=== PATIENT | female | born 1955 | race Caucasian/White ===

== ENCOUNTER → 2016-08-18 | Outpatient (CLI) | payer OTHER ==
--- NOTE | 2016-08-18 09:57 | REPMRS ---
Patient History The patient states she had a clinical breast exam in 08/2016. Patient is postmenopausal and is nulliparous. Family history of ovarian cancer in mother at age 72. Taking unspecified hormones for 4 years 1 month. Digital Woman Screen Mammo: August 18, 2016 - Exam #: [id number] Bilateral CC and MLO view(s) were taken. Technologist: Kalie Holguin, Technologist Prior study comparison: August 18, 2015, digital woman screen mammo performed at [facility] to [facility]. August 04, 2014, digital woman screen mammo performed at [facility] to [facility]. FINDINGS: There are scattered fibroglandular densities. There has been no change in the appearance of the mammogram from the prior studies. There is a mild amount of residual fibroglandular tissue which is fairly symmetric. There is no interval development of dominant mass, architectural distortion, or clustered microcalcification suggestive of malignancy. ASSESSMENT: BI-RADS/ACR category 1 mammogram. Negative. Recommendation Routine screening mammogram in 1 year (for women over age 40). This mammogram was interpreted with the aid of an FDA-approved computer-aided dectection system. Electronically Signed By: Jose Lin MD 08/18/16 0957
--- NOTE | 2016-08-18 13:07 | REP ---
PELVIC ULTRASOUND: Real-time sonographic of the pelvis performed utilizing transabdominal and endovaginal technique. Bladder measures 9.3 x 5.9 x 9.8 cm. Uterus measures 6.3 x 2.5 x 3.8 cm. Endometrial thickness is 3 mm. There is a tiny amount of fluid in the endometrial canal. Ovaries could not be visualized. I see no evidence of mass or free fluid in the pelvis. IMPRESSION: Tiny amount of endometrial fluid. Endometrium does not appear to be significantly thickened at 3 mm in thickness. No definite mass or free fluid. Ovaries could not be visualized.
--- NOTE | 2016-08-21 09:35 | DEXA ---
AP SPINE L1 - L4 1.079 -0.9 0.3 LT FEMUR TOTAL 0.901 -0.8 0.1 RT FEMUR TOTAL 0.949 -0.5 0.5 TOTAL BODY TOTAL OTHER DUAL FEMUR FRAX* ASSESSMENT Risk factors: Mother hip fracture. 10 year probability of fracture Major osteoporotic fracture 15.8 % Hip fracture 0.7 % COMMENTS: Normal bone densitometry of the spine. There is low bone density of the hips. The decreased density of the spine does represent a significant change. The decreased density of the left hip does represent a significant change. The decreased density of the right hip does not represent a significant change. The density of the spine has decreased 12.6% since the initial exam on 2006. The spine density has decreased 4.4% since the most recent exam on 08/04/2014. The density of the left hip has decreased 10.1% since the initial exam on 2006. The density of the left hip has decreased 3.8% since the most recent exam on . The density of the right hip has decreased 8.5% since the initial exam on 2006. The density of the right hip has decreased 1.4% since the most recent exam on . FOLLOW-UP: Recommendation for the next bone density exam: 2 years. AMANDEEP
== END ==
LOC: M WHC 07:58
PROVIDERS: ATTEND Nurse Practitioner Women's Health
DX: Z12.39 Encounter for other screening for malignant neoplasm of breast (principal); N95.1 Menopausal and female climacteric states

== ENCOUNTER → 2016-08-18 | Outpatient (REF) | payer OTHER | LOC: M SFHCWAGY 09:08 | PROVIDERS: ATTEND Nurse Practitioner Women's Health | DX: Z12.4 Encounter for screening for malignant neoplasm of cervix (principal); Z12.39 Encounter for other screening for malignant neoplasm of breast ==

== ENCOUNTER → 2017-01-12 | Outpatient (REF) | payer OTHER ==
[~2017-01-12] MED LIST: AMLO2.5T PO; IMIT50TA PO; LEVOTAB10 PO; MONT10TA2 PO; PRIL20CA9 PO; QNAS80AE; [UNRECOGNIZED DRUG - OTHER] PO; femhrt PO
[2017-01-15 13:41] LABS: PERCENT SATURATION 6.8 % (13.2-45.0)
== END ==
LOC: M LAB REF 13:10
PROVIDERS: ATTEND Internal Medicine
DX: D64.9 Anemia, unspecified (principal)

== ENCOUNTER 2017-03-01 10:29 | Day surgery (SDC) | payer OTHER ==
[~2017-03-01] VITALS: Ht 157.5 cm; Wt 68.5 kg
[2017-03-01] MEDS ORDERED: LR 1,000 ML IV ONE (11:00)
[2017-03-01] MEDS ORDERED: LIDOCAINE 2% MDV 20 ML VIAL As Ordered ONE (11:18)
[2017-03-01] MEDS ORDERED: BUPIVACAINE HCL 0.5% 30 ML VIAL As Ordered ONE (11:18)
[2017-03-01] MEDS ORDERED: dexameTHASONE 4 MG/ML 1ML VIAL (J1100) As Ordered ONE (11:18)
[2017-03-01] MEDS ORDERED: NEOSPORIN GU IRRIG 20 ML VIAL As Ordered ONE (11:19)
[2017-03-01] MEDS ORDERED: BACITRACIN PWD 50,000 UNITS VIAL As Ordered ONE (11:19)
[2017-03-01] MEDS ORDERED: BUPIVACAINE HCL 0.25% 10 ML VIAL As Ordered ONE (12:24)
[2017-03-01] MEDS ORDERED: PROPOFOL 200 MG/20 ML VIAL As Ordered ONE (12:49)
[2017-03-01] MEDS ORDERED: LIDOCAINE 2% INJ 100 MG/5 ML SDV (FOR ANES.) As Ordered ONE (12:49)
[2017-03-01] MEDS ORDERED: MIDAZOLAM INJ 2 MG/2 ML VIAL (J2250) As Ordered ONE (12:49)
[2017-03-01] MEDS ORDERED: fentaNYL 100 MCG/2 ML INJECTION (J3010) As Ordered ONE (12:49)
[2017-03-01] MEDS ORDERED: ONDANSETRON 4MG/2ML VIAL (J2405) IV PRN (14:00)
[2017-03-01] MEDS ORDERED: fentaNYL 100 MCG/2 ML INJECTION (J3010) IV PRN (14:00)
[2017-03-01] MEDS ORDERED: LR 1,000 ML IV SCH (14:00)
[2017-03-01 14:20] VITALS: BP 151/70
--- NOTE | 2017-03-01 15:23 | REP ---
Clinical: Postoperative baseline evaluation. Technique: Portable AP, lateral, oblique views. Findings: The patient is status post cheilectomy. Swelling and small amounts of subcutaneous emphysema are appreciated. Degenerative changes at the first metatarsophalangeal and interphalangeal joint noted. Satisfactory alignment maintained. Impression: Postoperative changes. Satisfactory alignment. Signed by Tan Ceballos MD 03/01/2017 03:15 P
--- NOTE | 2017-03-01 19:47 | RO ---
DATE OF PROCEDURE: 03/01/2017 PREOPERATIVE DIAGNOSIS: Hallux limitus deformity right foot. POSTOPERATIVE DIAGNOSIS: Hallux limitus deformity right foot. SURGEON: Dr. Jonny Marx DPM CEMENT TRUCK DRIVER: None. PROCEDURE PERFORMED: Cheilectomy first metatarsophalangeal joint right foot. HEMOSTASIS: Ankle pneumatic tourniquet at 200 mmHg for 32 minutes. HARDWARE UTILIZED: None. IRRIGATION: Dilute bacitracin, neomycin, polymyxin B solution. DESCRIPTION OF OPERATION: On 03/01/2017, this 61-year-old white female was taken from her hospital room to the operating room and placed on the operating table in supine position. Following the induction of IV sedation, local and regional anesthesia, the right lower extremity was prepped and draped in the usual aseptic manner. Attention was directed to the patients right foot and the following procedure was performed: CHEILECTOMY FIRST METATARSOPHALANGEAL JOINT RIGHT FOOT: Attention was directed to the patients first metatarsophalangeal joint where a linear incision was placed measuring approximately 5 cm over the first metatarsophalangeal joint. The incision was deepened in the subcutaneous tissues and all coursing venous tributaries were identified, underscored, clamped, cut, ligated and electrocoagulated as necessary. A linear capsulotomy was then performed in the same plane as the original skin incision. The capsular and periosteal structures were then dissected free in one continuous layer dorsally, medially and laterally, thus created a capsular periosteal type envelope. This delivered into view the hypertrophied medial eminence of the first metatarsal, which was osteotomized from distal to proximal through and through. The articular cartilage was then inspected on the first metatarsal. This large dorsal spur and approximately 40% of the articular cartilage was missing from the first metatarsal. Only 10% was missing from the proximal phalanx allowing us a salvage consisting of a cheilectomy to be performed. The dorsal spur was then osteotomized from distal to proximal through the first metatarsal, encompassing approximately 30-35 percent of the articular cartilage of the first metatarsal. This left a rim of denuded bone measuring approximately 3-4 mm measuring the entire length of the first metatarsal. This was microfractured with a 0.045 K-wire to promote fibrocartilaginous end growth. The dorsal 20% of the proximal phalanx was similarly osteotomized from distal to proximal through and through. However the cartilage remaining on this was completely viable along the lateral margin with the medial margin only missing approximately 10% of the cartilage or 2-3 mm. This was similarly drilled to promote fibrocartilaginous ingrowth with a 0.045 K-wire. The wound was flushed with copious amounts of dilute bacitracin, neomycin, and polymyxin B solution. Attention was directed towards closure where the capsular structures were coapted and maintained using #2-0 Monocryl in a simple interrupted type fashion. The subcutaneous tissues were coapted and maintained using #4-0 Monocryl in a simple interrupted type fashion. The skin incision was coapted and maintained utilizing #5-0 Monocryl in a continuous subcuticular type fashion. This was additionally reinforced with Steri-Strips. Following the surgical procedure, approximately 4 mg of dexamethasone sodium phosphate was instilled proximal to surgical site. Attention was directed towards bandaging where a sterile compressive bandage was applied consisting of Adaptic, 4 x 4's, 4 x 4 splints, Mert, Kerlix and Coban. The ankle pneumatic tourniquet was rapidly deflated and instantaneous capillary refilling time was noted to digits 1 through 5 of the patient's right foot. The patient having apparently tolerated the procedure well, was taken from the operating room to the recovery room, vital signs stable, patient afebrile, for further monitoring by the anesthesia department. All surgical specimens removed during the operative procedure were sent to pathology for gross and microscopic examination. Postoperative instructions will be given upon discharge.
== END 2017-03-01 15:00 | disposition home or self-care (01) ==
LOC: M SDC 10:29
PROVIDERS: ATTEND Podiatrist
DX: M20.21 Hallux rigidus, right foot (principal); I10 Essential (primary) hypertension; K21.9 Gastro-esophageal reflux disease without esophagitis; G43.909 Migraine, unspecified, not intractable, without status migrainosus; Z88.2 Allergy status to sulfonamides; Z79.899 Other long term (current) drug therapy; Z86.69 Personal history of other diseases of the nervous system and sense organs; Z78.0 Asymptomatic menopausal state
CPT/HCPCS: 28289; 73630; 88300; 97116; J0690; J1100; J2250; J3010

== ENCOUNTER 2017-04-30 07:19 | Day surgery (SDC) | payer OTHER ==
[2017-04-30] MEDS ORDERED: NS 1,000 ML IV (07:30)
[2017-04-30] MEDS ORDERED: LIDOCAINE 2% INJ 100 MG/5 ML SDV (FOR ANES.) As Ordered (08:23)
[2017-04-30] MEDS ORDERED: PROPOFOL 200 MG/20 ML VIAL As Ordered ×3 (08:23→08:49)
== END 2017-04-30 09:35 | disposition home or self-care (01) ==
LOC: M OPP 07:19
DX: D50.9 Iron deficiency anemia, unspecified (principal); K64.0 First degree hemorrhoids; K44.9 Diaphragmatic hernia without obstruction or gangrene; K31.7 Polyp of stomach and duodenum; I10 Essential (primary) hypertension; K21.9 Gastro-esophageal reflux disease without esophagitis; G43.909 Migraine, unspecified, not intractable, without status migrainosus; Z79.82 Long term (current) use of aspirin; Z79.899 Other long term (current) drug therapy; Z88.2 Allergy status to sulfonamides; Z78.0 Asymptomatic menopausal state; Z86.69 Personal history of other diseases of the nervous system and sense organs
CPT/HCPCS: 45378

== ENCOUNTER → 2017-06-20 | Outpatient (REF) | payer OTHER ==
[2017-06-20 14:57] LABS: IRON (FE) 80 UG/DL (50-170); PERCENT SATURATION 18.3 % (13.2-45.0); TOTAL IRON BINDING CAPACITY 437 UG/DL (250-450)
== END ==
LOC: M LAB REF 13:26
DX: D50.9 Iron deficiency anemia, unspecified (principal)
CPT/HCPCS: 83550

== ENCOUNTER → 2017-10-02 | Outpatient (CLI) | payer OTHER | LOC: M WHC 08:57 | DX: Z12.31 Encounter for screening mammogram for malignant neoplasm of breast (principal); Z78.0 Asymptomatic menopausal state | CPT/HCPCS: 77067 ==

== ENCOUNTER → 2017-10-02 | Outpatient (REF) | payer OTHER | LOC: M SFHCWAGY 09:38 | DX: Z12.4 Encounter for screening for malignant neoplasm of cervix (principal) ==

== ENCOUNTER → 2018-04-03 | Outpatient (CLI) | payer OTHER ==
[~2018-04-03] MED LIST changes: -AMLO2.5T PO; +AMLO2.5T2 PO; +ASPI1TAB PO; +CITRTAB15 PO; +MULT1TAB10 PO; +PROHANCE 279.3MG/ML 15ML VIAL (A9576) As Ordered ONE
--- NOTE | 2018-04-03 15:57 | REP ---
Bilateral breast MRI study without and with IV gadolinium: History: Genetic susceptibility to malignant neoplasm of the breast. High risk screening. Comparison mammography October 02, 2017. Technique: 3 Shalini MRI imaging was performed with a dedicated breast coil. Axial, coronal, and sagittal T1 and T2-weighted scans were obtained with and without fat saturation in the usual fashion. The study includes dynamically acquired post gadolinium enhanced imaging subtraction imaging. Maximal intensity projection and multiplanar re-formation imaging is included as well. The study was interpreted with the aid of ImmediatelyD, an FDA approved computer-aided detection (CAD) software program, on a dedicated breast MRI work station. The gadolinium enhancement dose is 14 ml of intravenous ProHance. Findings: T2-weighted inversion recovery, axial and coronal images show no evidence of axillary lymphadenopathy on either side. There is no evidence of significant breast cystic change. Scattered fibroglandular elements are seen bilaterally in a pattern which is symmetric. High-resolution pre- and postcontrast T1 and T2-weighted images show no suspicious morphologic abnormality in either breast. Dynamically acquired sequential post gadolinium enhanced images show no suspicious area of enhancement and washout in either breast to suggest malignancy. Subtraction images are unremarkable. Impression: BIRADS category 1 negative bilateral breast MRI scanning. Patient's whose lifetime breast cancer risk assessment is greater than 20% merit annual screening MRI scanning of the breast in addition to annual screening mammography. Electronically Signed by Martín De La Rosa MD 04/03/2018 08:42 P
== END ==
LOC: M RAD 10:08
PROVIDERS: ATTEND Nurse Practitioner Women's Health
DX: Z15.01 Genetic susceptibility to malignant neoplasm of breast (principal)
CPT/HCPCS: A9576; C8908

== ENCOUNTER → 2018-04-29 | Outpatient (CLI) | payer OTHER ==
[~2018-04-29] MED LIST changes: -AMLO2.5T2 PO; +AMLO2.5T3 PO; +FEMH0.5T PO; +IBUP-1022 PO; +OXYC1TAB23 PO; +PERC5TAB12 PO; -PROHANCE 279.3MG/ML 15ML VIAL (A9576) As Ordered ONE; +RANI300C PO
--- NOTE | 2018-05-01 08:00 | ECGEPIP ---
Stationary ECG Study [facility] Test Date: 2018-04-29 Pat Name: IGOR EMERSON Department: Room: - Gender: F Print Line Feeder: JAYNA : 1955 Requested By: ALICJA Velazquez Order Number: [id number] Reading MD: Riccardo Martinez Measurements Intervals Mayer Rate: 72 P: 42 UT: 160 QRS: 42 QRSD: 75 T: 20 QT: 342 QTc: 375 Interpretive Statements SINUS RHYTHM Electronically Signed On 05-01-2018 8:00:02 EST by Riccardo Martinez
== END ==
LOC: M EKG 10:24
PROVIDERS: ATTEND Anesthesiology
DX: I10 Essential (primary) hypertension (principal)

== ENCOUNTER 2018-05-03 05:45 | Day surgery (SDC) | payer OTHER ==
[2018-05-03] VITALS (9 sets, daily range): BP systolic 101–134; BP diastolic 53–69
[~2018-05-03] VITALS: Ht 157.5 cm; Wt 70.8 kg
[~2018-05-03 05:45] MED LIST changes: -IBUP-1022 PO; -OXYC1TAB23 PO; -PERC5TAB12 PO
[2018-05-03 06:25] LABS: HEMATOCRIT 41.5 % (36.0-47.0); HEMOGLOBIN 14.1 g/dl (12.0-15.5); MEAN CORPUSCULAR HEMOGLOBIN 30.9 pg (27.0-33.0); MEAN CORPUSCULAR VOLUME 90.8 fl (80.0-96.0); PLATELET COUNT, AUTOMATED 249 10^3/uL (150-450); RED BLOOD COUNT 4.57 10^6/uL (4.00-5.40)
[2018-05-03] MEDS ORDERED: LR 1,000 ML IV ONE (07:00)
[2018-05-03] MEDS ORDERED: LIDOCAINE 2% JELLY 30 ML As Ordered ONE (07:06)
[2018-05-03] MEDS ORDERED: GLYCOPYRROLATE INJ 0.2 MG/ML 2 ML VIAL As Ordered ONE (07:06)
[2018-05-03] MEDS ORDERED: MIDAZOLAM INJ 2 MG/2 ML VIAL (J2250) As Ordered ONE (07:06)
[2018-05-03] MEDS ORDERED: NEOSTIGMINE 10 MG/10 ML VIAL (J2710) As Ordered ONE (07:06)
[2018-05-03] MEDS ORDERED: LIDOCAINE 2% INJ 100 MG/5 ML SDV (FOR ANES.) As Ordered ONE (07:06)
[2018-05-03] MEDS ORDERED: dexameTHASONE 4 MG/ML 1ML VIAL (J1100) As Ordered ONE (07:06)
[2018-05-03] MEDS ORDERED: HYDROmorphone HCL 2 MG/ML 1ML VIAL (J1170) As Ordered ONE (07:06)
[2018-05-03] MEDS ORDERED: PROPOFOL 200 MG/20 ML VIAL As Ordered ONE (07:06)
[2018-05-03] MEDS ORDERED: ROCURONIUM BROMIDE 50 MG/5 ML VIAL As Ordered ONE (07:06)
[2018-05-03] MEDS ORDERED: fentaNYL 100 MCG/2 ML INJECTION (J3010) As Ordered ONE (07:06)
[2018-05-03] MEDS ORDERED: ONDANSETRON 4MG/2ML VIAL (J2405) As Ordered ONE (07:06)
[2018-05-03] MEDS ORDERED: BUPIVACAINE HCL 0.25% 30 ML VIAL As Ordered ONE (07:16)
[2018-05-03] MEDS ORDERED: METHYLENE BLUE 0.5% (5MG/ML) 10 ML AMP (PROVAYBLUE)(Q9968 PER 1MG) As Ordered ONE (07:17)
[2018-05-03] MEDS ORDERED: ePHEDrine SULFATE 25 MG/5 ML(5MG/ML) SYRINGE As Ordered ONE (07:59)
[2018-05-03] MEDS ORDERED: KETOROLAC 60 MG/2 ML VIAL (J1885) As Ordered ONE (10:21)
[2018-05-03] MEDS ORDERED: LR 1,000 ML IV SCH ×2 (10:28→10:45)
[2018-05-03] MEDS ORDERED: ONDANSETRON 4MG/2ML VIAL (J2405) IV PRN ×2 (10:30→10:45)
[2018-05-03] MEDS ORDERED: PERCOCET 5MG/325MG TAB PO PRN ×2 (10:30)
[2018-05-03] MEDS ORDERED: SUMAtriptan SUCCINATE 25 MG TAB PO PRN (10:30)
[2018-05-03] MEDS ORDERED: MORPHINE 10 MG/ML 1ML VIAL (J2270) IV PRN (10:45)
[2018-05-03] MEDS ORDERED: fentaNYL 100 MCG/2 ML INJECTION (J3010) IV PRN (10:45)
--- NOTE | 2018-05-03 16:00 | NUR ---
OPERATIVE NOTE DATE OF PROCEDURE: 05/03/2018 PREOPERATIVE DIAGNOSiS: BRCA2 positive POSTOPERATIVE DIAGNOSIS: Same as preoperative diagnosis PROCEDURE PERFORMED: Robotic-assisted total laparoscopic hysterectomy, bilateral salpingo-oophorectomy and cystoscopy (risk reducing) SURGEON: Martin Jessica DO. RESIDENTIAL BUILDING INSPECTOR: KADE Cotton (needed for uterine manipulation). ANESTHESIA: General endotracheal. SPECIMENS TO PATHOLOGY: Uterus, cervix with bilateral fallopian tube and ovaries. ESTIMATED BLOOD LOSS: 50 mL. FLUIDS REPLACED: 1400 liters lactated Ringer's. DRAINS: Mosquera catheter ; 300 mL of urine output COMPLICATIONS: None. PREOPERATIVE ANTIBIOTICS: Ancef 2g IV x 1 (given within 30 minutes of procedure start time) INTRAOPERATIVE FINDINGS: Uterus was approximately 5-6 cm in greatest dimension. The uterus sounded to 6 cm. Bilateral ovaries were normal in appearance. Cystoscopic findings: No bladder injury. No suture material. Bilateral ureteral orifice efflux visualized after IV infusion of methylene blue. INDICATION: The patient is a 63 -year-old requesting a risk reducing hysterectomy and bilateral salpingo-oophorectomy. She had a recent positive scr eening for the genetic mutation BRCA2, thus elevating her breast and ovarian cancer risk. Patient also had a variant of unknown significance with the MSH2 g mary, thus elevating her endometrial cancer risk and prompting the decision for hysterectomy as well. PROCEDURE: The patient was counseled and consented on the risks, benefits, indications, and alternatives of the procedure. Informed consent was obtained. She was taken to the operating room with an IV running and placed on the operating table in the dorsal supine position. General anesthesia was administered and airway secured without any difficulty. The patient was placed in a level horizontal low lithotomy position. She was prepped and draped in a normal steri le fashion. A time-out was performed per protocol. A Mosquera catheter was placed under sterile conditions. A sterile speculum was placed into the vagina with good visualization of the cervix. The anterior lip of the cervix was grasped with a single-tooth tenaculum and downward traction was applied. The uterus was sounded to 7.5 cm. The cervix was sequentially dilated with Maverick dilators up to #16. The anterior and posterior lip were tagged with and interrupted stitch using #0 Vicryl suture. The [employer] uterine manipulator was pl aced in typical fashion without any difficulty. The single-toothed tenaculum was removed. The sterile speculum was removed. The VCare uterine manipulator was noted to be adequately in place. A glove switch was performed. Attention was turned to the abdomen. A 2 mm umbilical incision was made with the 11 blade. The Veress needle was placed through this incision into the intraperitoneal cavity. Intraperitoneal placement was confirmed with the following checks: no resistance/ease of flow of normal saline from the attached syringe through the Veress needle, no return of blood/fluid/succus upon aspirating with the attached syringe, a positive drop test, and the opening pressure during insufflation was less than 1 0 mmHg. The abdomen was insufflated with 2.5 liters of gas. The Veress needle was removed. A 12 mm horizontal midline, supraumbilical incision was made with the 11 blade. Through this incision, a size 12mm XL laparoscopic trocar was placed under direct visualization technique into the intraperitoneal cavity. Intraperitoneal placement was confirmed. The patient was placed in a low lithotomy steep Trendelenberg position. The right and left lower quadrant port sites were placed via 8 mm incisions using the 11 blade. The 8 mm da April cannulas were placed under laparoscopic guidance on both sides. An additional 8 mm accessory port-site was placed under laparoscopic guidance in the left upper quadrant, approximately 10 cm directly above the left lower quadrant port site. Given the successful placement of all the DaVinci cannulas, the robot was easily side-docked. Attention was turned to the Bonushi robotic console. The right fallopian tube, utero-ovarian ligament, and round ligament were sequentially clamped, coagulated and transected with the DaVinci vessel sealer device. The Da April vessel sealer was used to dissect and mobilize the right-sided half of the vesicouterine peritoneum/"bladder flap" with both blunt and bipolar dissection. The right uterine vasculature was skeletonized and identified. Excellent hemostasis was achieved. The left fallopian tube, utero-ovarian ligament and round ligament were sequentially clamped, coagulated and transected using the Da April vessel sealer device. The left uterine vasculature was skeletonized and easily identified. Excellent hemostasis was noted. The remainder of the vesicouterine peritoneum was dissected and mobilized along the anterior portion of the VCare uterine manipulator cup in order to complete the bladder flap. This resulted in adequate mobilization/displacement of the bladder away from the cervix. During all of the dissection described above, an occasional small bleeding vessel needed to be cauterized with the DaVinci PK bipolar forceps. The right and left uterine vasculature were sequentially clamped, coagulated and transected with both DaVinci PK bipolar forceps and vessel sealer instruments. Excellent blanching of the uterus was noted, thus indicating that the blood supply to the uterus was obliterated. Excellent hemostasis was noted. The DaVinci monopolar levon were used to create the circumferential colpotomy around the VCare cervical cup border. Incidental small bleeding vaginal vessels were cauterized with the DaVinci PK bipolar forceps. This circumferential incision was completed and the uterus with the cervix was noted to be fully amputated as one unit. This specimen was brought through the colpotomy into the vagina. Insufflation of the intraperitoneal cavity remained adequate. Attention was turned to the right IP ligament. The distal right IP ligament was noted to be an adequate distance from the right ureter. Approximately 2 cm proximal to the ovary , the right IP ligament was sequentially clamped, coagulated and transected, thus amputating the right ovary and fallopian tube. This specimen was placed through the colpotomy into the vagina. The distal left IP ligament was identified and noted to be an adequate distance from the le ft ureter. Approximately 2 cm proximal to the ovary, he left IP ligament was sequentially clamped, coagulated and transected, thus amputating the left ovary and fallopian tube. This specimen was placed through the colpotomy into the vagina. The vaginal cuff was closed in running fashion with V-Loc suture. Excellent hemostasis of the vaginal cuff was noted. The lower abdomen/pelvis was irrigated and suctioned, thus removing all blood and clot. Excellent hemostasis was noted. Nina was placed over the surgical sites to maintain hemostasis. The insufflation gas was released from the intraperitoneal cavity. All cannulas were removed. The robot was undocked without any difficulty. The patient was taken out of steep Trendelenburg and placed back into a level horizontal low lithotomy position. The Mosquera catheter was removed. A 30 degre e cystoscope was placed transurethrally into the bladder. The entire bladder mucosa was examined. There was no evidence of a bladder injury or suture material. Brisk bilateral ureteral orifice efflux of urine was visualized after IV infusion of methylene blue. The cystoscope was removed and the Mosquera catheter was replaced. The vagina was copiously irrigated. The sponge, needle, and instrument counts were correct. A glove switch was performed. Attention was turned back to the abdomen. At the supraumbilical incision, the underlying fascia was closed with #0 Vicryl using the Michele Shereen technique. Each skin incision was closed with #4-0 Monocryl in subcuti cular fashion and reinforced with Dermabond. Sponge, needle, and instrument counts were again correct. The patient tolerated the entire procedure well. She was transferred to the postanesthesia care unit in good and stable condition. Raquel Jessica DO, FACOG.
[2018-05-03] MEDS: KETOROLAC 30 MG/ML VIAL (J1885) IV SCH ×2 (17:15→23:34)
[2018-05-03] MEDS ORDERED: MONTELUKAST 10 MG TAB PO SCH (21:00)
[2018-05-03] MEDS: DOCUSATE SODIUM 100 MG CAP PO SCH (21:36)
[2018-05-04 04:15] VITALS: BP 134/67
[2018-05-04] MEDS: KETOROLAC 30 MG/ML VIAL (J1885) IV SCH (05:25)
[2018-05-04 07:01] LABS: BASO % 0.1 % (0.0-1.0); EOS % 0.2 % (0.0-3.0); HEMATOCRIT 37.9 % (36.0-47.0); HEMOGLOBIN 12.7 g/dl (12.0-15.5); LYMPH # 1.4 10^3/uL (1.5-4.5); LYMPH % 15.6 % (24.0-44.0); MEAN CORPUSCULAR HEMOGLOBIN 30.5 pg (27.0-33.0); MEAN CORPUSCULAR HGB CONC 33.5 g/dl (32.0-36.5); MEAN CORPUSCULAR VOLUME 91.1 fl (80.0-96.0); MONO # 0.9 10^3/uL (0.0-0.8); MONO % 9.8 % (0.0-5.0); NEUTROPHILS # 6.6 10^3/uL (1.8-7.7); NEUTROPHILS % 73.9 % (36.0-66.0); PLATELET COUNT, AUTOMATED 253 10^3/uL (150-450); RED BLOOD COUNT 4.16 10^6/uL (4.00-5.40); WHITE BLOOD COUNT 8.9 10^3/uL (4.0-10.0)
[2018-05-04] MEDS ORDERED: PERC5TAB12 PO (08:01)
[2018-05-04] MEDS ORDERED: IBUP-1022 PO (08:04)
[2018-05-04 08:08] VITALS: BP 136/64
[2018-05-04] MEDS ORDERED: OXYC1TAB23 PO (08:17)
[2018-05-04] MEDS: DOCUSATE SODIUM 100 MG CAP PO SCH (08:38)
[2018-05-04] MEDS ORDERED: MULTIVITAMINS/MINERALS THERAP 1 TAB PO SCH (09:00)
[2018-05-04] MEDS ORDERED: FAMOTIDINE 20 MG TAB PO SCH (09:00)
[2018-05-04] MEDS ORDERED: IBUPROFEN 800 MG TAB PO SCH (13:00)
== END 2018-05-04 09:20 | disposition home or self-care (01) ==
LOC: M SDC 05:45 → M PED 11:25 → M SDC 05-04 09:20
PROVIDERS: ATTEND Obstetrics & Gynecology
DX: Z15.01 Genetic susceptibility to malignant neoplasm of breast (principal); I10 Essential (primary) hypertension; K21.9 Gastro-esophageal reflux disease without esophagitis; Z88.2 Allergy status to sulfonamides; Z79.82 Long term (current) use of aspirin; Z79.899 Other long term (current) drug therapy
CPT/HCPCS: 36415; 58571; 85025; 85027; 86850; 86900; 86901; 88307; 96374; 96376; J0690; J1100; J1170; J1885; J2250; J2405; J2710; J3010; Q9968

== ENCOUNTER → 2018-07-01 | Outpatient (REF) | payer OTHER ==
[~2018-07-01] MED LIST changes: +IBUP-1022 PO; +OXYC1TAB23 PO; +PERC5TAB12 PO
[2018-07-01 13:24] LABS: PERCENT SATURATION 32.8 % (13.2-45.0)
== END ==
LOC: M LAB REF 12:25
PROVIDERS: ATTEND Internal Medicine
DX: D50.9 Iron deficiency anemia, unspecified (principal)

== ENCOUNTER → 2018-08-27 | Outpatient (REF) | payer OTHER ==
[~2018-08-27] MED LIST changes: -ASPI1TAB PO; +ASPI81TA26 PO
== END ==
LOC: M LAB REF 11:48
PROVIDERS: ATTEND Nurse Practitioner Women's Health
DX: R30.0 Dysuria (principal)

== ENCOUNTER → 2018-10-03 | Outpatient (CLI) | payer OTHER ==
--- NOTE | 2018-10-03 09:27 | REPMRS ---
Patient History The patient states she had a clinical breast exam in 08/2018. Patient is postmenopausal and is nulliparous. Patient had tested positive for BRCA2. Family history of ovarian cancer at age 72 in mother. Taking unspecified hormones for 6 years 1 month. 3D TOMOSYNTHESIS WAS PERFORMED. The Alan Vazquez lifetime risk for breast cancer is 57.3%. Digital Woman Screen Mammo: October 03, 2018 - Exam #: [id number] Bilateral CC and MLO view(s) were taken. Technologist: Sarah Alvarez, Technologist Prior study comparison: October 02, 2017, bilateral digital woman screen mammo performed at [facility]. August 18, 2016, digital woman screen mammo performed at [facility]. FINDINGS: There are scattered fibroglandular densities. There has been no change in the appearance of the mammogram from the prior studies. There is a mild amount of residual fibroglandular tissue which is fairly symmetric. There is no interval development of dominant mass, architectural distortion, or clustered microcalcification suggestive of malignancy. Assessment: BI-RADS/ACR category 1 mammogram. Negative Mammogram. Recommendation Routine screening mammogram in 1 year (for women over age 40). This mammogram was interpreted with the aid of an FDA-approved computer-aided dectection system. THE LIFETIME RISK OF BREAST CANCER IS 57.3%, THEREFORE SUPPLEMENTAL SCREENING MRI OF THE BREASTS IS RECOMMENDED IN 6 MONTHS. Electronically Signed By: Jose Lin MD 10/03/18 0908
== END ==
LOC: M WHC 08:17
PROVIDERS: ATTEND Nurse Practitioner Women's Health
DX: Z12.31 Encounter for screening mammogram for malignant neoplasm of breast (principal); Z15.09 Genetic susceptibility to other malignant neoplasm; Z15.01 Genetic susceptibility to malignant neoplasm of breast; Z78.0 Asymptomatic menopausal state; Z80.41 Family history of malignant neoplasm of ovary; Z92.23 Personal history of estrogen therapy

== ENCOUNTER → 2019-04-07 | Outpatient (REF) | payer OTHER ==
[2019-04-07 14:36] LABS: PERCENT SATURATION 34.5 % (13.2-45.0)
== END ==
LOC: M LAB REF 12:34
PROVIDERS: ATTEND Internal Medicine
DX: D50.9 Iron deficiency anemia, unspecified (principal)

== ENCOUNTER → 2019-05-26 | Outpatient (REF) | payer OTHER ==
[~2019-05-26] MED LIST changes: -MONT10TA2 PO; +MONT10TA4 PO
== END ==
LOC: M SFHCWAGY 13:12
PROVIDERS: ATTEND Obstetrics & Gynecology
DX: Z12.4 Encounter for screening for malignant neoplasm of cervix (principal); R87.615 Unsatisfactory cytologic smear of cervix
CPT/HCPCS: 87624; G0123

== ENCOUNTER → 2021-07-04 | Outpatient (CLI) | payer OTHER ==
[~2021-07-04] MED LIST changes: -MONT10TA4 PO; +MONT10TA97 PO
== END ==
LOC: M WHC 08:57
PROVIDERS: ATTEND Internal Medicine
DX: M85.80 Other specified disorders of bone density and structure, unspecified site (principal)

== ENCOUNTER → 2022-05-19 | Outpatient (REF) | payer MEDICARE, OTHER ==
[2022-05-22 19:07] LABS: ANTINUCLEAR ANTIBODIES DIRECT Negative (Negative); CYCLIC CITRULLINATED PEPTIDE 11 units (0-19)
== END ==
LOC: M LAB REF 14:25
PROVIDERS: ATTEND Internal Medicine
DX: M25.50 Pain in unspecified joint (principal)

== ENCOUNTER 2022-11-27 08:12 | Day surgery (SDC) | payer MEDICARE ==
[~2022-11-27] VITALS: Ht 157.5 cm; Wt 72.3 kg
[~2022-11-27 08:12] MED LIST changes: +NS 1,000 ML IV ONE; +OMEP40CA5 PO; +fentaNYL 100 MCG/2 ML INJECTION As Ordered ONE; +propofoL 200 MG/20 ML VIAL As Ordered ONE
[2022-11-27] MEDS ORDERED: propofoL 200 MG/20 ML VIAL As Ordered ONE (10:44)
[2022-11-27 11:16] VITALS: TEMP 97
[2022-11-27 11:29] VITALS: BP 146/78; O2SAT 97
== END 2022-11-27 11:32 | disposition home or self-care (01) ==
LOC: M OPP 08:12
PROVIDERS: ATTEND Internal Medicine Gastroenterology
DX: Z12.11 Encounter for screening for malignant neoplasm of colon (principal); K64.0 First degree hemorrhoids; K57.30 Diverticulosis of large intestine without perforation or abscess without bleeding; K44.9 Diaphragmatic hernia without obstruction or gangrene; K22.89 Other specified disease of esophagus; Z79.82 Long term (current) use of aspirin; Z79.899 Other long term (current) drug therapy; Z88.2 Allergy status to sulfonamides
CPT/HCPCS: 43239; 88305; G0121; J3010

== ENCOUNTER → 2023-02-06 | Outpatient (REF) | payer MEDICARE ==
[~2023-02-06] MED LIST changes: -NS 1,000 ML IV ONE; -fentaNYL 100 MCG/2 ML INJECTION As Ordered ONE; -propofoL 200 MG/20 ML VIAL As Ordered ONE
== END ==
LOC: M LAB REF 16:29
PROVIDERS: ATTEND Physician Assistant
DX: R30.0 Dysuria (principal)

== ENCOUNTER → 2023-04-20 | Outpatient (REF) | payer MEDICARE | LOC: M LAB REF 12:16 | PROVIDERS: ATTEND Nurse Practitioner Family | DX: N39.0 Urinary tract infection, site not specified (principal) ==

== ENCOUNTER 2023-05-29 07:49 | Day surgery (SDC) | payer MEDICARE ==
[~2023-05-29] VITALS: Ht 157.5 cm; Wt 76.2 kg
[2023-05-29] MEDS ORDERED: LIDOCAINE W/EPINEPHRINE 1% 20ML VIAL XX ONE (08:00)
[2023-05-29] MEDS ORDERED: SODIUM BICARBONATE 8.4% INJ 50MEQ 50ML VIAL XX ONE (08:00)
[2023-05-29] MEDS ORDERED: MUPIROCIN 2% OINT 22 GM TUBE As Ordered ONE (10:04)
[2023-05-29 10:35] VITALS: BP 129/80; TEMP 97.1; O2SAT 99
== END 2023-05-29 10:50 | disposition home or self-care (01) ==
LOC: M SDC 07:49
PROVIDERS: ATTEND Orthopaedic Surgery Hand Surgery
DX: M65.4 Radial styloid tenosynovitis [de Quervain] (principal)

== ENCOUNTER → 2023-07-02 | Outpatient (REF) | payer MEDICARE | LOC: M LAB REF 11:22 | PROVIDERS: ATTEND Nurse Practitioner Family | DX: R30.0 Dysuria (principal) ==